=== PATIENT | male | born 1950 | race Caucasian/White ===

== ENCOUNTER 2016-10-11 10:58 | Inpatient (IN) ==
[2016-10-11] MEDS ORDERED: Acetaminophen 325 MG TABLET PO PRN (12:08)
[2016-10-11] MEDS ORDERED: Naloxone 0.4 MG/ML INJ IVP PRN (12:08)
[2016-10-11] MEDS ORDERED: Ondansetron ODT 4 MG TAB.RAPDIS SL PRN (12:08)
--- NOTE | 2016-10-11 12:44 | Internal Med History&Physical ---
<Kathy Ward - Last Filed: 10/11/16 12:38> Date of Encounter: 10/11/16 Time of Encounter: 12:38 Assessment and Plan (1) CVA (cerebral vascular accident) Current visit: Yes Status: Acute per hx 2012. No residual effects. MRI done at [place] that showed new, small, acute ischemic infarct to left temporal lobe. Neurologically intact, no deficits apparent. Cont home ASA, statin. Hgb 1c, TSH, LDL, echo and carotid dopplers pending. Neurology consulted Qualifiers: CVA mechanism: unspecified Qualified Code(s): I63.9 - Cerebral infarction, unspecified (2) CAD (coronary artery disease) Current visit: Yes Status: Acute per hx with CABG 2004. Asymptomatic, denies chest pain. EKG with RBBB and mobitz 1. Cont home ASA, statin. Echo pending cardiology consulted Qualifiers: Coronary Disease-Associated Artery/Lesion type: bypass graft [place] vs. transplanted heart: [place] heart Associated angina: without angina Qualified Code(s): I25.810 - Atherosclerosis of coronary artery bypass graft(s) without angina pectoris (3) HTN (hypertension) Current visit: Yes Status: Acute per hx. BP elevated in the ED. Will defer permissive HTN as patient is asymptomatic and unclear when infarct occurred. Resume home BP medications. Monitor BP and titrate PRN Qualifiers: Hypertension type: essential hypertension Qualified Code(s): I10 - Essential (primary) hypertension (4) Diabetes Current visit: Yes Status: Acute per hx. Control unknown. Blood sugar in 200s at [place]. Cont home insulin regimen. Hold metformin. Monitor blood sugars and titrate PRN Qualifiers: Diabetes mellitus type: type 2 Diabetes mellitus complication status: with hyperglycemia Diabetes mellitus halfway insulin use: with halfway use Qualified Code(s): E11.65 - Type 2 diabetes mellitus with hyperglycemia; Z79.4 - terminal carman (current) use of insulin (5) DVT prophylaxis Current visit: Yes Status: Acute heparin Internal Medicine - H&P: HPI Chief complaint: new stroke on MRI History of present illness: Mr. Finney is a 66 year old male with PMH CAD, previous CVA, diabetes and HTN who presented to [place] for scheduled MRI which found new CVA. he was transferred to [facility] on 10/11/2016 for further work-up and treatment. Information obtained from chart review and patient report. [facility], he's not sure why. Says he felt fine, says he was told to come in and have MRI done. He actually has no complains, no slurred speech, no facial droop, no numbness/ tingling or weakness. He denies CP, no SOB Past Med Surg Social Fam HX - Past Medical History Medical history: CVA Psychiatric history: anxiety - Past Surgical History Surgical History: coronary bypass (CABG) - Social History Smoking Status: Never smoker Smokeless Tobacco Status: No Alcohol use: none Drug use: none - Additional Family History Additional family history: reviewed and non-contributory Internal Medicine - H&P: Meds Allergies No Known Allergies Allergy (Verified 10/11/16 12:20) All Systems PM: A 10-system review of systems was performed and is negative for pertinent findings except as documented above in the HPI. - Constitutional Constitutional: no chills, no fever(s), no night sweats - EENT Eyes: no change in vision, no discharge, no pain, no photophobia Ears: no ear discharge, no ear pain, no tinnitus Nose, mouth and throat: no dysphagia, no nasal discharge, no neck pain, no sore throat - Cardiovascular Cardiovascular ROS IM: no chest pain, no diaphoresis, no dyspnea, no lightheadedness, no palpitations, no syncope - Respiratory Respiratory: no cough, no dyspnea, no wheezing, no excessive phlegm production - Gastrointestinal Gastrointestinal: no abdominal pain, no diarrhea, no hematemesis, no hematochezia, no melena, no nausea, no vomiting - Musculoskeletal Musculoskeletal ROS IM: no numbness, no tingling - Integumentary Integumentary IM: no rash, no unusual bruising - Neurological Neurological ROS: no confusion, no convulsions, no focal weakness, no numbness, no tingling, no tremor(s) - Hematologic/Lymphatic Hematologic/Lymphatic: no easy bruising - Constitutional Vitals: Temp Pulse Resp BP Pulse Ox 98.0 F 57 18 190/79 98 10/11/16 11:09 10/11/16 11:09 10/11/16 11:09 10/11/16 11:09 10/11/16 11:09 General appearance: Present: A&O X 3, no acute distress - Head Head exam: Present: atraumatic, normocephalic - Eye Eye exam: Present: PERRL, conjuntiva pink, sclera anicteric Pupils: Present: PERRL - Neck Neck exam general surgery: Present: supple, trachea midline. Absent: lymphadenopathy - Respiratory Respiratory exam: Present: CTAB. Absent: accessory muscle use, rales, rhonchi, wheezes - Cardiovascular Cardiovascular exam: Present: RRR, +S1, +S2. Absent: diastolic murmur, gallop, rubs, systolic murmur - GI/Abdominal GI/Abdominal exam: Present: normal bowel sounds, soft, no peritoneal signs. Absent: distended, tenderness Additional comments: obese - Extremities Exam Extremities exam: Present: warm, radial pulses palpable and symetrical. Absent : calf tenderness, cyanotic, pedal edema - Neurological Exam Neurological exam: Present: CN II-XII intact, oriented X3, no focal deficits. Absent: pronater drift, facial droop, speech deficit Additional comments: strenth 5/5 in all extremities, subtle weakness with right hand squeeze - Skin Skin exam: Present: dry, intact Internal Med - H&P Results - EKG Data -: EKG Interpreted by Myself - EKG Data Prior EKG available for review: no - Impressions RBBB with darrellitz 1 <Jonathan Luciano H - Last Filed: 10/11/16 13:48> Date of Encounter: 10/11/16 Internal Medicine - H&P: HPI History of present illness: Mr. Finney is a 66 year old male All Systems PM: A 10-system review of systems was performed and is negative for pertinent findings except as documented above in the HPI. - Constitutional Vitals: Temp Pulse Resp BP Pulse Ox 98.0 F 54 18 178/99 99 10/11/16 11:09 10/11/16 13:21 10/11/16 13:21 10/11/16 13:21 10/11/16 13:21 - Attending Attestation 1) CVA noticed on MRI History of CVA in 2013. Continue aspirin Order echocardiogram and cardiac ultrasound, neurology consult 2. Mobitz 1 AV block Telemetry, followed by cardiology 3. Diabetes type 2, continue insulin sliding scale 4. 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 I agree with the documented findings, disposition and treatment plan as described except to the extent set forth below.
--- NOTE | 2016-10-11 12:51 | Event Note ---
Date of Encounter: 10/11/16 Time of Encounter: 12:49 1) CVA noticed on MRI History of CVA in 2013. Continue aspirin Order echocardiogram and cardiac ultrasound, neurology consult 2. Mobitz 1 AV block Telemetry, followed by cardiology 3. Diabetes type 2, continue insulin sliding scale 4. Hypertension, permissive hypertension allowed, may use hydralazine if systolic blood pressure more than 180 Time spent on this admission 40 minutes H an P by JENAE Ward
[2016-10-11 12:56] LABS: Hemoglobin A1C 10.8 %
--- NOTE | 2016-10-11 13:28 | Emergency Department Note ---
Disposition Clinical Impression: CVA (cerebral vascular accident) Qualifiers: CVA mechanism: unspecified Qualified Code(s): I63.9 - Cerebral infarction, unspecified Disposition: Admitted As Inpatient Condition: Fair [facility]: [facility]Primary Care Provider[facility] - Forms: ED Satisfaction Letter General Adult HPI - General Chief complaint: ED Arrhythmia/Palpitations Stated complaint: general Time Seen by Provider: 10/11/16 11:08 Source: patient Nursing Notes Reviewed: Yes Vital Signs Reviewed: Yes - History of Present Illness HPI Narrative: Patient comes to the emergency department from the [facility] due to abnormal lab results. Per report patient had a MRI of his head for a "checkup" . On the MRI patient found to have an acute small infarct at the posterior left temporal lobe. Patient denies any neurological symptoms. Patient did have a CVA back in 2013 when he states he has some residual right-sided weakness. Patient denies chest pain denies shortness of breath. Patient denies dizziness associated. Pain Scale: 0 - Related Data Allergies Allergy/AdvReac Type Severity Reaction Status Date / Time No Known Allergies Allergy Verified 10/11/16 12:20 All systems ED: reviewed and negative except as stated. Past Medical History - Past Medical History Source: patient Medical history: Reports: CVA Surgical history: Reports: coronary bypass (CABG) Psychiatric history: Reports: anxiety - Social History Smoking Status: Never smoker Smokeless Tobacco Status: No Alcohol use: Reports: none Drug use: Reports: none Physical Exam - General Limitations: no limitations General appearance: alert, in no apparent distress - Head Head exam: atraumatic, normocephalic, normal inspection - Eye Eye exam: Present: normal appearance, PERRL, EOMI - ENT ENT exam: normal exam, normal oropharynx, mucous membranes moist - Neck Neck exam: Present: normal inspection, full ROM, trachea midline - Chest Chest inspection: Present: normal inspection, symmetric chest wall rise - Respiratory Respiratory exam: Present: normal lung sounds bilaterally - Cardiovascular Cardiovascular exam: Present: regular rate, normal rhythm, normal heart sounds - Abdominal Exam Abdominal exam: Present: soft, Non-Tender. Absent: tenderness, distention, guarding, rebound, rigidity - Extremities Exam Extremities exam: Present: normal inspection, full ROM. Absent: tenderness, pedal edema - Back Exam Back exam: Present: normal inspection, full ROM. Absent: tenderness - Neurological Exam Neurological exam: Present: alert, oriented X3 - Psychiatric Psychiatric exam: Present: normal affect, normal mood - Skin Skin exam: Present: warm, dry, intact, normal color Course Vital Signs Temperature 98.0 F 10/11/16 11:09 Pulse Rate 57 10/11/16 11:09 Respiratory Rate 18 10/11/16 11:09 Blood Pressure 190/79 10/11/16 11:09 O2 Sat by Pulse Oximetry 98 10/11/16 11:09 Temperature 98.0 F 10/11/16 11:09 Pulse Rate 54 10/11/16 13:21 Respiratory Rate 18 10/11/16 13:21 Blood Pressure 178/99 10/11/16 13:21 O2 Sat by Pulse Oximetry 99 10/11/16 13:21 Oxygen Delivery Oxygen Delivery Room Air Medical Decision Making - Lab Data Lab results reviewed: Yes I reviewed the patient's lab results. Lab results narrative: Lab work performed at the [facility] was unremarkable. Lab Results 10/11/16 10/11/16 Range/Units 12:39 12:39 Est Mean Plasma Glucose 263 mg/dl Hemoglobin A1c 10.8 H ( - 5.6) % TSH 1.369 (0.350-4.840) mcIU/mL - Radiology Data Radiology results reviewed: Yes I reviewed the patient's radiology results. [facility] - EKG Data EKG #1 EKG attestation: Yes I reviewed and interpreted this EKG. EKG results narrative: Second-degree heart block Mobitz 1. No previous history. Critical Care Time Total Critical Care Time: 30 Attestation: Critical care performed: Time is exclusive of separately billable procedures. Time includes: direct patient care, patient reassessment, coordination of patient care, interpretation of data (laboratory data, radiology data, and respiratory data), review of patient's medical records, medical consultation and documentation of patient care. Procedures included in critical care time: Procedures excluded from critical care time:
[2016-10-11] MEDS ORDERED: D5% in Water 1,000 ML IVC PRN (13:52)
[2016-10-11] MEDS ORDERED: Dextrose Gel 15 GM PO PRN ×2 (13:52)
[2016-10-11] MEDS ORDERED: *HR* Dextrose 50 % in Water (Syg) 50 ML SYRINGE IVP PRN (13:52)
[2016-10-11] MEDS: Lisinopril 20 MG TABLET PO SCH (14:30)
[2016-10-11] MEDS: Insulin LISPRO 300 UNITS/3 ML VIAL SQ SCH ×2 (17:41→21:44)
[2016-10-11] MEDS: *HR* Heparin 5,000 UNIT/ML VIAL SQ SCH ×2 (17:41→21:45)
[2016-10-11] MEDS ORDERED: Perflutren Lipid Microsphere 1.3 ML in 0.9 % Sodium Chloride 8.7 ML IVP ONE (19:58)
[2016-10-11] MEDS: Insulin DETEMIR 100 UNIT/ML X5UNITS SQ SCH (21:43)
[2016-10-12] MEDS: *HR* Heparin 5,000 UNIT/ML VIAL SQ SCH ×3 (06:17→21:02)
[2016-10-12 06:51] LABS: Basophils % 0.4 %; Eosinophils # 0.2 K/mcL (0.0-0.6); Eosinophils % 3.2 %; Hematocrit 42.8 % (37.5-50.1); Hemoglobin 14.8 g/dL (12.9-16.9); Immature Granulocytes % 0.5 % (0-4); Lymphocytes # 1.9 K/mcL (0.6-4.6); Lymphocytes % 24.3 %; Mean Corpuscular HGB Conc 34.6 g/dL (31.6-35.5); Mean Corpuscular Hemoglobin 30.7 pg (28.0-33.3); Mean Corpuscular Volume 88.8 fL (83.0-100.0); Monocytes # 0.8 K/mcL (0.0-1.3); Monocytes % 9.9 %; Neutrophils # 4.7 K/mcL (1.6-8.9); Platelet Count 182 K/mcL (140-400); Red Blood Count 4.82 M/mcL (4.19-5.50); Red Cell Distribution Width 12.9 % (11.5-14.5); Segmented Neutrophils % 61.7 %
[2016-10-12 07:12] LABS: BUN/Creatinine Ratio 15 (6-26); Blood Urea Nitrogen 19 mg/dL (8-26); Calcium 9.1 mg/dL (8.6-10.8); Carbon Dioxide 28 mEq/L (19-29); Chloride 105 mEq/L (98-109); Chol/HDL Ratio 4.7 (0-4.9); Cholesterol 149 mg/dL (< 200); Glucose 145 mg/dL (70-99); HDL Cholesterol 32 mg/dL (40-59); LDL Cholesterol,Calculated 81 mg/dL (0-99); Osmolality,Calculated 293 (280-300); Potassium 4.3 mEq/L (3.5-4.5); Sodium 139 mEq/L (136-145); Triglycerides 181 mg/dL (< 150); eGFR For African Americans > 60 (> 60); eGFR For Non-African Americans 59 (> 60)
--- NOTE | 2016-10-12 08:52 | ECHO - Doppler Report ---
Echo with Saline and Imaging Enhancement Agent Name: Marky Finney Date of Study: 10/11/2016 Date: 1950 Ht: 70.0 in Medical Record#: [id number] Age: 66 Wt: 235.0 lb Gender: Male BSA: 2.24 Order #: [id number] Location: [facility] Room #: 2A32 Reading Physician: Porsha Guzman DO Supervisor Photocomposition: Adalgisa Cohen Ordering Physician: Kathy Ward CNP Primary Physician: None Indications: Cerebrovascular Accident Impressions: Sinus rhythm, BBB and first degree AVB on rhythm strip. LVEF 55%. Normal left ventricular size and systolic function. There is evidence of mild diastolic dysfunction of the left ventricle. Normal right ventricular size and function in visualized views. No significant valvular dysfunction. No pulmonary hypertension. Suboptimal saline contrast study to detect PFO secondary to image quality. Left Ventricular Wall Motion: Rest Echo Findings All wall segments showed normal motion. Findings: Study Quality * Technically sub-optimal due to body habitus. ECG Findings * Normal sinus rhythm, BBB with first degree AVB. Left Ventricle * Normal LV chamber size, wall thickness and function. * Mild left ventricular diastolic dysfunction. * LVEF 55%. * Definity echo contrast was used. Aorta * Normally sized aortic root. Left Atrium * Mildly dilated left atrium. Mitral Valve * Normal mitral valve structure. * No mitral stenosis. * Mild mitral annular calcification * No mitral regurgitation. Aortic Valve * No aortic regurgitation. * Off-axis SAX view. Morphology not well visualized. * No aortic stenosis. Tricuspid Valve * Tricuspid valve not well visualized. * No tricuspid regurgitation. Pulmonic Valve * Pulmonic valve is not well visualized. * No pulmonic stenosis. * No pulmonic regurgitation. Pulmonary Artery * Pulmonary artery not well visualized. Right Atrium * Normal right atrial size. Interatrial Septum * Interatrial septum not well evaluated. Pericardium * There is no pericardial effusion present. Right Ventricle * Normal right ventricular structure and function. Not well visualized in subcostal view. Lat S Chu 10cm/s History Hypertension Diabetes Hypercholesteremia Years 25 Packs 1 History of CAD/PTCA Myocardial Infarction Coronary Artery Bypass Graft Contrast: Agitated saline 20 ml. Definity 1.3 ml in 8.7 ml of saline 4 ml. Measurements: BP: 180/ 102 2D Normal Values RVIDd: 2.82 cm <2.7 cm IVSd: .66 cm 0.6 - 1.0 cm LVIDd: 3.63 cm 3.7 - 5.6 cm LVPWd: .91 cm 0.6 - 1.1 cm LVIDs: 2.43 cm 1.5 - 3.6 cm AO: 2.10 cm < 4.0 cm LA: 3.30 cm 2.0 - 4.0cm %FS: 33.10 cm >25 % LA volume: 57 Mitral Valve Peak E:1.04 m/sec Peak A:1.15 m/sec E/A Ratio:0.9 Peak E' Lat Chu:7.18 cm/s Peak E' Med Chu:13.3 cm/s E/E' Lat Ratio:14.5 E/E' Med Ratio:7.8 Tricuspid Valve TV Regurg Peak Grad: 3.00mmHg TV Regurg Peak Chu: .91m/sec Updated by Porsha Guzman on 10/12/2016 8:45:47 AM electronically signed on 10/12/2016 8:46:41 AM with status of Final Wall Motion [place]: 1=Normal, 2=Hypokinesis, 3=Akinesis, 4=Dyskinesis, 5=Aneurysmal, 6=Hyperkinetic, X=Not Visualized (Blank)=Missing
[2016-10-12] MEDS ORDERED: Aspirin Enteric Coated 325 MG Tablet PO SCH (09:00)
[2016-10-12] MEDS: Aspirin Enteric Coated 81 MG Tablet PO SCH (09:21)
[2016-10-12] MEDS: Lisinopril 20 MG TABLET PO SCH (09:22)
[2016-10-12] MEDS: Insulin LISPRO 300 UNITS/3 ML VIAL SQ SCH ×4 (09:22→21:00)
--- NOTE | 2016-10-12 14:09 | Internal Med Progress Note ---
Date of Encounter: 10/12/16 Time of Encounter: 11:55 - Assessment and plan (1) CVA (cerebral vascular accident) Current Visit: Yes Status: Acute Assessment and plan: Pt transferred from [facility] for further evaluation of MRI brain showing new, small , acute ischemic infarct to left temporal lobe will continue ASA, Statin awaiting neurology consultation f/u PT/OT eval f/u 2D echo Qualifiers: CVA mechanism: unspecified Qualified Code(s): I63.9 - Cerebral infarction, unspecified (2) CAD (coronary artery disease) Current Visit: Yes Status: Chronic Assessment and plan: no signs of angina present at this time continue home medications Qualifiers: Coronary Disease-Associated Artery/Lesion type: bypass graft [place] vs. transplanted heart: [place] heart Associated angina: without angina Qualified Code(s): I25.810 - Atherosclerosis of coronary artery bypass graft(s) without angina pectoris (3) HTN (hypertension) Current Visit: Yes Status: Acute Assessment and plan: BP within acceptable range continue home medications Qualifiers: Hypertension type: essential hypertension Qualified Code(s): I10 - Essential (primary) hypertension (4) Diabetes Current Visit: Yes Status: Acute Assessment and plan: continue sliding scale insulin algorithm monitor FS and BG ADA diet Qualifiers: Diabetes mellitus type: type 2 Diabetes mellitus complication status: with hyperglycemia 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 Resting comfortably in bed and denies any discomfort at this time. - Constitutional Vitals: Temp Pulse Resp BP Pulse Ox 98.3 F 65 15 123/63 95 10/12/16 11:30 10/12/16 11:30 10/12/16 11:30 10/12/16 11:30 10/12/16 11:30 General appearance: Present: cooperative, A&O X 3, no acute distress, obese, answers questions appropriately - Head Head exam: Present: atraumatic, normocephalic - Eye Eye exam: Present: normal appearance, conjuntiva pink, sclera anicteric - Respiratory Respiratory exam: Present: CTAB. Absent: accessory muscle use, rales, rhonchi, wheezes - Cardiovascular Cardiovascular exam: Present: RRR, +S1, +S2. Absent: diastolic murmur, gallop, rubs, systolic murmur - GI/Abdominal GI/Abdominal exam: Present: normal bowel sounds, soft, no peritoneal signs. Absent: distended, tenderness - Extremities Exam Extremities exam: Present: warm, radial pulses palpable and symetrical. Absent : calf tenderness, cyanotic, pedal edema - Neurological Exam Neurological exam: Present: alert, CN II-XII intact, oriented X3, strengths equal and symetr throughout. Absent: pronater drift, facial droop, speech deficit - Psychiatric Psychiatric exam: Present: normal affect, normal mood Internal Medicine: Result - Labs CBC & Chem 7: 10/12/16 06:22 10/12/16 06:22 Labs: Short CBC 10/12/16 Range/Units 06:22 WBC 7.6 (4.3-11.1) K/mcL Hgb 14.8 (12.9-16.9) g/dL Hct 42.8 (37.5-50.1) % Plt Count 182 (140-400) K/mcL Neutrophils # 4.7 (1.6-8.9) K/mcL BMP 10/12/16 06:22 Sodium 139 Potassium 4.3 Chloride 105 Carbon Dioxide 28 BUN 19 Creatinine 1.23 Glucose 145 H Calcium 9.1 Consult Discharge Plan - Plan [facility]errals: [facility] [Primary Care Provider] -
--- NOTE | 2016-10-12 15:15 | Neurology - Consult Note ---
Date of Encounter: 10/12/16 Time of Encounter: 15:10 Assessment and Plan (1) CVA (cerebral vascular accident) Current Visit: Yes Status: Acute The patient has not fact experienced a silent infarct involving the left temporal lobe region. This gentleman experienced no new symptoms from a neurologic perspective. Currently his neurologic examination is normal barring the diplopia which he states is been present for at least a year now. Upon admission his systolic blood pressure was 190 so his blood pressure is not well controlled, and his glucose was elevated at 145. Since being admitted his had an echocardiogram which was unrevealing. I do recommend a carotid duplex Doppler study. I also recommend discontinuing the aspirin replacing it with Plavix 75 mg daily indefinitely. Otherwise certainly aggressive management of his risk factors is paramount again his blood pressure was 190 systolic upon admission, his hemoglobin A1c is 10. I did not anticipate that he needs any additional therapy from my perspective. I will reevaluate him at your request. The documentation in the history of HPI and plan were at least partially created by [employer] voice recognition technology by Dr. Hollins. Errors in grammar, wording or other phrases may exist. If errors are found after the documentation signed, they will be addressed individually in the addendum section of this document when appropriate. Qualifiers: CVA mechanism: unspecified Qualified Code(s): I63.9 - Cerebral infarction, unspecified History of Present Illness HPI: Mr. Finney is a 66 year old male who was seen for neurologic evaluation secondary to acute left temporal occipital cerebral infarct. The history here is very unclear. This patient apparently went to the local [place] hospital to "obtain an MRI of my head". He is not exactly sure why he was sent for this MRI. He mentions about 3 weeks or so ago he had a "TIA" and was hospitalized at the [facility]. His symptoms at that time work and some confusion which resolved spontaneously over an hour or so. He also reports having had a cerebral infarct back in 2013, but does not recall specifics about how it affected him at that time. He has had diplopia for about a year now. 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 However as it pertains to this acute hospital admission he denies any new onset of any neurologic symptoms. Denies headache denies worsening visual changes denies numbness tingling or weakness of the face on the leg. However the MRI that was obtained with the [facility] revealed acute infarct in the left temporal lobe. Unfortunately the study is not available for my review. Patient at this time is reclining in bed relaxed. Patient upon arrival had a blood pressure of 190/79. He does have stroke risk factors which include hyperlipidemia, hypertension, diabetes mellitus. He states that he has been taking aspirin daily for quite some time now. At least since 2005 that he can recall. Upon arrival his electrolyte panel is normal BUN/creatinine are normal. Glucose is elevated at 145. Upon admission. Past Med Surg Social Fam HX - Past Medical History Medical history: CVA, myocardial infarction Psychiatric history: anxiety - Past Surgical History Surgical History: coronary bypass (CABG) - Social History Smoking Status: Never smoker Smokeless Tobacco Status: No Alcohol use: none Drug use: none - Family History Mother Living Status: Cause of : mesothelioma Father Living Status: Cause of : Old age Medications and Allergies Aspirin Enteric Coated [Aspirin EC] 81 mg PO DAILY 10/11/16 [History] Insulin ASPART [Novolog Flexpen] 15 - 20 unit SQ TIDWM MDD SLIDING SCALE [History] Insulin Glargine,Hum.rec.anlog [Lantus Solostar] 20 unit SQ HS 10/11/16 [History ] Lisinopril [Zestril] 20 mg PO DAILY 10/11/16 [History] Naproxen [Naprosyn] 500 mg PO BID 10/11/16 [History] [place]-3/Dha/Epa/Fish Oil [Fish Oil 1,000 mg Softgel] 1,000 mg PO BID 10/11/16 [ History] Oxybutynin [Ditropan] 5 mg PO BID 10/11/16 [History] Rosuvastatin [Crestor] 40 mg PO HS 10/11/16 [History] Vitamin B Complex 1 cap PO DAILY 10/11/16 [History] metFORMIN [Glucophage] 1,000 mg PO BIDWM 10/11/16 [History] Allergies No Known Allergies Allergy (Verified 10/11/16 12:20) All Systems: A 10-system review of systems was performed and is negative for pertinent findings except as documented above in the HPI. Review of Systems: 10 point review of systems is consistent with a history of present illness and otherwise negative. Physical Examination - Vital Signs Vital Signs: Initial Vital Signs Temp Pulse Resp BP Pulse Ox 98.0 F 57 18 190/79 98 10/11/16 11:09 10/11/16 11:09 10/11/16 11:09 10/11/16 11:09 10/11/16 11:09 - Exam Exam: Neurologic examinations performed and find the following. For cerebral functions he is alert and oriented to person place and time. He follows commands and answers questions appropriately. There is no agnosia, aphasia, or apraxia. A full Mini-Mental state assessment is not performed. Cranial nerves-pupils are equal and reactive to light and accommodation, extraocular motility is intact. He does have vertical diplopia which is worse with downward and leftward gaze. I suspect that the left trochlear nerve is at fault. There is no ptosis present. Sensory to face intact, mastication is intact, mastication is intact. There is no facial asymmetry identified. Speech is not dysarthric. Hearing is intact symmetrically. Soft palate elevates bilaterally upon phonation. Tongue protrudes midline. Cerebellar exam finds no dysdiadochokinesis or dysmetria. He performs finger to nose, heel to chen without ataxia. Gait is not ataxic. Motor exam-he has normal strength bulk and tone of the upper and lower extremities bilaterally. No involuntary movements identified. There is no atrophy present. Sensory exam finds decreased sensation to pinprick in a distal to proximal gradient. Vibratory and proprioception are intact. Deep tendon reflexes are diminished throughout. No Lorenzo trauma or Babinski signs are present. Results - Laboratory Findings CBC and BMP: 10/12/16 06:22 10/12/16 06:22 Abnormal lab findings: Abnormal lab results Est GFR (Non-Af Amer) 59 (> 60) L 10/12/16 06:22 Glucose 145 mg/dL (70-99) H 10/12/16 06:22 POC Glucose 226 (58-89) H 10/12/16 11:32 Hemoglobin A1c 10.8 % (-5.6) H 10/11/16 12:39 Triglycerides 181 mg/dL (< 150) H 10/12/16 06:22 VLDL Cholesterol, Calc 36 mg/dL (< 31) H 10/12/16 06:22 HDL Cholesterol 32 mg/dL (40-59) L 10/12/16 06:22 Consult Discharge Plan - Plan [facility]errals: [facility] [Primary Care Provider] -
--- NOTE | 2016-10-12 15:49 | Event Note ---
Date of Encounter: 10/12/16 Time of Encounter: 15:49 Patient was reported to have tele rhythm changes from Mobitz type I to type II AV block with episodes of sinus bradycardia fluctuating from 40s-60s. Pt remains asymptomatic and in no distress. No reported SOB or chest pain. Cardiology (Dr. Pedroza) consulted and will evaluate the patient shortly. Patient will be transferred to for closer monitoring. Repeat EKG consistent with Mobitz type II AV block with 51bpm
--- NOTE | 2016-10-12 16:14 | Cardiology Consult Note ---
Date of Encounter: 10/12/16 Time of Encounter: 16:00 Assessment and Plan (1) Heart block Current Visit: Yes Status: Acute Telemetry review shows intermittent Mobitz type I and long first degree AV block. . 4.7 second pause seen at 3:10 am. minimum HR 33 bpm at 7:41 pm last night. Currently Mobitz type I AV block HR 40-60 bpm. He is asymptomatic. No history of recent AV tang herlinda. Electrolytes are normal. TSH normal. Avoid AV tang blockers. Possible ppm today, Will review strips and EKG with electrophysiology. (2) CAD (coronary artery disease) Current Visit: Yes Status: Chronic h/o CAD s/p CABG x3 vessel in 2004. Continue asa and statin. No BB d/t 2nd degree heart block. Qualifiers: Coronary Disease-Associated Artery/Lesion type: bypass graft [place] vs. transplanted heart: [place] heart Associated angina: without angina Qualified Code(s): I25.810 - Atherosclerosis of coronary artery bypass graft(s) without angina pectoris Discussion w patient/family: The assessment and plan as outlined above was discussed with the patient and/or family members who expressed understanding and agreement. All questions were answered. Thank you for involving us in the care of your patient. Please call with any questions. History of Present Illness Consult date: 10/12/16 Requesting physician: Kaylan Almaguer Consult reason: heart block Chief complaint: "I had a stroke." History of present illness: Mr. Finney is a 66 year old male who presented from the [place] after he was found to have an acute stroke on a MRI. Patient denies symptoms. He states he was at the [place] for routine exam when he was found to have an abnormality on a MRI of the brain and abnormal EKG. Initial EKG showed a possible mobitz type II block. MRI shows small acute left temporal lobe infarct. During his stay here he was noted to have pauses up to 4.7 seconds and intermittent 2nd degree heart block. He denies chest pain or SOB. He denies palpitations, dizziness, or syncope. He has a history of CAD s/p CABG x3 vessel in 2004, CVA, DM, HTN, HLD, and MICAELA. Past Med Surg Social Fam HX - Past Medical History Medical history: coronary artery disease, CVA, hyperlipidemia, hypertension, myocardial infarction Psychiatric history: anxiety - Past Surgical History Surgical History: coronary bypass (CABG) - Social History Smoking Status: Never smoker Smokeless Tobacco Status: No Alcohol use: none Drug use: none - Family History Mother Living Status: Cause of : mesothelioma Father Living Status: Cause of : Old age Medications and Allergies Aspirin Enteric Coated [Aspirin EC] 81 mg PO DAILY 10/11/16 [History] Insulin ASPART [Novolog Flexpen] 15 - 20 unit SQ TIDWM MDD SLIDING SCALE [History] Insulin Glargine,Hum.rec.anlog [Lantus Solostar] 20 unit SQ HS 10/11/16 [History ] Lisinopril [Zestril] 20 mg PO DAILY 10/11/16 [History] Naproxen [Naprosyn] 500 mg PO BID 10/11/16 [History] [place]-3/Dha/Epa/Fish Oil [Fish Oil 1,000 mg Softgel] 1,000 mg PO BID 10/11/16 [ History] Oxybutynin [Ditropan] 5 mg PO BID 10/11/16 [History] Rosuvastatin [Crestor] 40 mg PO HS 10/11/16 [History] Vitamin B Complex 1 cap PO DAILY 10/11/16 [History] metFORMIN [Glucophage] 1,000 mg PO BIDWM 10/11/16 [History] Allergies No Known Allergies Allergy (Verified 10/11/16 12:20) All Systems Review: A 10-system review of systems was performed and is negative for pertinent findings except as documented above in the HPI. Physical Examination Vital Signs, Last 4 Hours Temp Pulse Resp BP Pulse Ox 10/12/16 15:28 98.3 F 65 13 155/89 95 General: Conversant, No Apparent Distress HEENT: Atraumatic, Normocephaly, Mucus Membranes Moist Neck: No JVD, Normal carotid pulses Cardiac: Reg Rate and Rhythm, Normal S1 and S2, No Murmur Lungs: Normal Breath Sounds, No Wheeze, Rales, Rhonchi Neuro: Alert and responsive, No focal deficits noted Abdomen: Soft, Non-Tender Skin: No rashes noted on visualized skin Musculoskeletal: No Chest Wall Tenderness Extremities: No Clubbing, No Cyanosis, No Edema, Normal Pulses Results 10/12/16 06:22 10/12/16 06:22 Lab Results 10/12/16 10/12/16 06:22 06:22 WBC 7.6 Hgb 14.8 Hct 42.8 Plt Count 182 Sodium 139 Potassium 4.3 Chloride 105 Carbon Dioxide 28 BUN 19 Creatinine 1.23 Glucose 145 H Calcium 9.1 - Imaging and Cardiology Echo: report reviewed - EKG Interpretation EKG results cardiology: personally reviewed Consult Discharge Plan - Plan [facility]errals: [facility] [Primary Care Provider] -
[2016-10-12] MEDS ORDERED: 0.9 % Sodium Chloride 500 ML ONE (17:21)
[2016-10-12] MEDS ORDERED: *HR* FentaNYL (PF) 100 MCG/2 ML VIAL ONE (17:22)
[2016-10-12] MEDS ORDERED: 0.9 % Sodium Chloride 1,000 ML ONE (17:22)
[2016-10-12] MEDS ORDERED: D5% in Water (Mini-Bag+) 100 ML IVPB ONE (17:22)
[2016-10-12] MEDS ORDERED: Water for inj. (sterile) 10 ML IV ONE (17:22)
[2016-10-12] MEDS ORDERED: *HR* Midazolam HCl 2 MG/2 ML VIAL ONE (17:23)
[2016-10-12] MEDS: Insulin DETEMIR 100 UNIT/ML X5UNITS SQ SCH (21:45)
[2016-10-12] MEDS: ceFAZolin 2,000 MG in D5% in Water 100 ML IVPB SCH (23:48)
[2016-10-13 04:40] LABS: Basophils % 0.5 %; Eosinophils # 0.3 K/mcL (0.0-0.6); Eosinophils % 2.9 %; Hematocrit 45.1 % (37.5-50.1); Hemoglobin 15.4 g/dL (12.9-16.9); Immature Granulocytes % 0.3 % (0-4); Lymphocytes # 2.3 K/mcL (0.6-4.6); Lymphocytes % 25.9 %; Mean Corpuscular HGB Conc 34.1 g/dL (31.6-35.5); Mean Corpuscular Hemoglobin 29.9 pg (28.0-33.3); Mean Corpuscular Volume 87.6 fL (83.0-100.0); Mean Platelet Volume 9.8 fL (9.4-12.4); Monocytes # 0.8 K/mcL (0.0-1.3); Monocytes % 9.5 %; Neutrophils # 5.3 K/mcL (1.6-8.9); Platelet Count 190 K/mcL (140-400); Red Blood Count 5.15 M/mcL (4.19-5.50); Red Cell Distribution Width 12.7 % (11.5-14.5); Segmented Neutrophils % 60.9 %
[2016-10-13 05:33] LABS: BUN/Creatinine Ratio 13 (6-26); Blood Urea Nitrogen 17 mg/dL (8-26); Calcium 9.2 mg/dL (8.6-10.8); Carbon Dioxide 25 mEq/L (19-29); Chloride 104 mEq/L (98-109); Glucose 218 mg/dL (70-99); Magnesium 1.7 mg/dL (1.6-2.6); Osmolality,Calculated 294 (280-300); Phosphorous 2.3 mg/dL (2.3-4.7); Potassium 4.1 mEq/L (3.5-4.5); Sodium 138 mEq/L (136-145); eGFR For African Americans > 60 (> 60); eGFR For Non-African Americans 56 (> 60)
[2016-10-13] MEDS: *HR* Heparin 5,000 UNIT/ML VIAL SQ SCH ×3 (05:36→23:16)
[2016-10-13] MEDS: Lisinopril 20 MG TABLET PO SCH (08:19)
[2016-10-13] MEDS: Aspirin Enteric Coated 81 MG Tablet PO SCH (08:19)
[2016-10-13] MEDS: ceFAZolin 2,000 MG in D5% in Water 100 ML IVPB SCH (08:19)
[2016-10-13] MEDS: Insulin LISPRO 300 UNITS/3 ML VIAL SQ SCH ×7 (08:30→20:26)
--- NOTE | 2016-10-13 08:37 | Internal Med Progress Note ---
Date of Encounter: 10/13/16 Time of Encounter: 08:35 - Assessment and plan (1) Heart block Current Visit: Yes Status: Acute Assessment and plan: Cardiology input appreciated Mobitz I 2nd AV block with underlying RBBB s/p permanent pacemaker placement, currently in NSR will await further cardiac input and initiate discharge planning continue tele monitoring Will start Metoprolol 12.5mg PO q12h (2) CVA (cerebral vascular accident) Current Visit: Yes Status: Acute Assessment and plan: Pt transferred from [facility] for further evaluation of MRI brain showing new, small , acute ischemic infarct to left temporal lobe Neurology consultation appreciated Will discontinue aspirin and start Plavix for stroke prevention f/u carotid dopplers 2D echo noted pt clinically asymptomatic right now and ambulating well around the room without any difficulties Qualifiers: CVA mechanism: unspecified Qualified Code(s): I63.9 - Cerebral infarction, unspecified (3) CAD (coronary artery disease) Current Visit: Yes Status: Chronic Assessment and plan: no signs of angina present at this time continue home medications will discuss with cardiology about starting Plavix and discontinuing Aspirin Qualifiers: Coronary Disease-Associated Artery/Lesion type: bypass graft [place] vs. transplanted heart: [place] heart Associated angina: without angina Qualified Code(s): I25.810 - Atherosclerosis of coronary artery bypass graft(s) without angina pectoris (4) HTN (hypertension) Current Visit: Yes Status: Acute Assessment and plan: Noted to be hypertensive this morning will closely monitor BP after patient receives his morning dose of Lisinopril added Metoprolol 12.5mg PO q12h will continue to monitor Hydralazine 10mg IV q6h PRN SBP>150 Qualifiers: Hypertension type: essential hypertension Qualified Code(s): I10 - Essential (primary) hypertension (5) Diabetes Current Visit: Yes Status: Acute Assessment and plan: continue sliding scale insulin algorithm monitor FS and BG ADA diet Qualifiers: Diabetes mellitus type: type 2 Diabetes mellitus complication status: with hyperglycemia Diabetes mellitus senior care insulin use: with senior care use Qualified Code(s): E11.65 - Type 2 diabetes mellitus with hyperglycemia; Z79.4 - 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 Patient sitting comfortably in bed and eating breakfast. He is s/p permanent pacemaker placement and currently noted to be in normal sinus rhythm. Denies any discomfort at this time. Mild tenderness to palpation noted at the site of pacemaker. No overnight issues reported. - Constitutional Vitals: Temp Pulse Resp BP Pulse Ox 97.7 F 75 20 154/91 96 10/13/16 08:09 10/13/16 08:09 10/13/16 08:09 10/13/16 08:09 10/13/16 08:09 General appearance: Present: cooperative, A&O X 3, no acute distress, obese, answers questions appropriately - Head Head exam: Present: atraumatic, normocephalic - Eye Eye exam: Present: normal appearance, conjuntiva pink, sclera anicteric - Respiratory Respiratory exam: Present: CTAB. Absent: accessory muscle use, rales, rhonchi, wheezes - Cardiovascular Cardiovascular exam: Present: RRR, +S1, +S2. Absent: diastolic murmur, gallop, rubs, systolic murmur Additional comments: Left chest wall pacemaker in place - GI/Abdominal GI/Abdominal exam: Present: normal bowel sounds, soft, no peritoneal signs. Absent: distended, tenderness - Extremities Exam Extremities exam: Present: warm, radial pulses palpable and symetrical. Absent : calf tenderness, cyanotic, pedal edema - Neurological Exam Neurological exam: Present: alert, oriented X3 - Psychiatric Psychiatric exam: Present: normal affect, normal mood Internal Medicine: Result - Labs CBC & Chem 7: 10/13/16 03:53 10/13/16 03:53 Labs: Short CBC 10/13/16 Range/Units 03:53 WBC 8.7 (4.3-11.1) K/mcL Hgb 15.4 (12.9-16.9) g/dL Hct 45.1 (37.5-50.1) % Plt Count 190 (140-400) K/mcL Neutrophils # 5.3 (1.6-8.9) K/mcL BMP 10/13/16 03:53 Sodium 138 Potassium 4.1 Chloride 104 Carbon Dioxide 25 BUN 17 Creatinine 1.27 H Glucose 218 H Calcium 9.2 Cardiac Enzymes 10/12/16 10/12/16 Range/Units 15:54 21:36 Troponin I 0.00 0.06 H* (0-0.03) ng/mL - Impressions Impressions Chest X-Ray 10/12/16 18:43 IMPRESSION: 1. Dual lead left-sided pacer appears adequately positioned with no evidence of pneumothorax. 2. Cardiomegaly and low lung volumes. D/ / 10/12/2016 20:24:59 Sj Rand MD / marianna Interpreting Provider: Sj Rand MD Chest X-Ray 10/13/16 06:00 IMPRESSION: No acute process. Stable cardiomegaly Transvenous pacer unchanged in position D/ / Dakota Harrison MD / Dakota Harrison MD Interpreting Provider: Dakota Harrison MD Consult Discharge Plan - Plan [facility]errals: [facility] [Primary Care Provider] -
--- NOTE | 2016-10-13 09:28 | Cardiology Progress Note ---
Date of Encounter: 10/13/16 Time of Encounter: 09:26 Assessment and Plan (1) Heart block Current Visit: Yes Status: Acute Pt was found to have Mobitz type 1 second degree heart block with longest pause noted ot be 4.7 seconds. Electrolytes are normal. TSH normal. Reviewed strips and EKG with electrophysiology, recommended PPM insertion. S/P PPM insertion yesterday. CXR okay, device check okay. Left chest device site healing well. Steri strips intact. No bleeding, hematoma or ecchymosis noted. Will coordinate follow-up in 7-10 days for wound check, 4-6 weeks for device check and in [address] Fermin Cross. Restrictions discussed. Cardiology signing off. Reconsult PRN. (2) Pacemaker Current Visit: Yes Status: Acute As above. Device check and CXR okay. Follow-up as above. (3) CVA (cerebral vascular accident) Current Visit: Yes Status: Acute Okay with primary team changing ASA to Plavix in setting of acute CVA. Will monitor device checks as outpt to see if any A-Fib is noted to warrant full anticoagulation. So far, no arrhythmias. Qualifiers: CVA mechanism: unspecified Qualified Code(s): I63.9 - Cerebral infarction, unspecified (4) CAD (coronary artery disease) Current Visit: Yes Status: Chronic h/o CAD s/p CABG x3 vessel in 2004. Continue Plavix, statin, BB. ASA was switched to Plavix by primary team given CVA. Qualifiers: Coronary Disease-Associated Artery/Lesion type: bypass graft [place] vs. transplanted heart: [place] heart Associated angina: without angina Qualified Code(s): I25.810 - Atherosclerosis of coronary artery bypass graft(s) without angina pectoris (5) Elevated troponin Current Visit: Yes Status: Acute Initial troponin negative, then 0.06 last night after PPM insertion. Pt denies chest pain. EF preserved on echo. No further cardiac testing warranted. Discussion w patient/family: The assessment and plan as outlined above was discussed with the patient and/or family members who expressed understanding and agreement. All questions were answered. Thank you for involving us in the care of your patient. Please call with any questions. I will discuss all the above with Dr. Pedroza and make changes as necessary. Subjective Principal diagnosis: Mobitz type 1 second degree block Interval history: Pt is s/p PPM yesterday for Mobitz type 1 2nd degree block. Denies any acute complaints this AM. Device check okay, CXR okay. Objective Vital Signs, Last 4 Hours Temp Pulse Resp BP Pulse Ox 10/13/16 08:27 154/91 96 10/13/16 08:09 97.7 F 75 20 154/91 96 10/13/16 05:35 97.7 F 71 18 154/93 94 Vital Signs Temp Pulse Resp BP Pulse Ox 10/13/16 08:27 154/91 96 10/13/16 08:09 97.7 F 75 20 154/91 96 10/13/16 05:35 97.7 F 71 18 154/93 94 10/13/16 04:48 73 10/13/16 00:01 98.0 F 74 16 148/74 95 10/12/16 22:30 68 149/92 10/12/16 21:30 90 129/85 10/12/16 21:10 97.7 F 65 16 146/103 96 10/12/16 20:45 65 161/81 10/12/16 20:30 59 151/75 10/12/16 20:15 80 168/100 10/12/16 20:00 70 138/69 10/12/16 19:45 71 155/130 10/12/16 19:20 70 10/12/16 19:15 68 168/95 10/12/16 16:27 83 18 159/82 96 10/12/16 15:28 98.3 F 65 13 155/89 95 10/12/16 11:30 98.3 F 65 15 123/63 95 Intake and Output 10/12/16 10/13/16 10/13/16 23:59 07:59 15:59 Intake Total 480 / 480 400 / 400 360 / 360 Balance 480 / 480 400 / 400 360 / 360 Intake: IV Fluids 100 / 100 Ancef 2,000 MG In 100 / 100 Dextrose 5% 100 ML @ 200 mls/hr IVPB Q8HR REID Rx#: [id number] Oral 480 / 480 300 / 300 360 / 360 Other: Meal Lunch Breakfast Percent of Meal Consumed 100% 100% # Voids 0 # Bowel Movements 0 Weight 107.2 kg Blood Glucose* 221 169 Patient Weight 10/13/16 23:59 Weight 107.2 kg General: Conversant, No Apparent Distress HEENT: Atraumatic, Normocephaly, Mucus Membranes Moist Neck: No JVD, Normal carotid pulses Cardiac: Reg Rate and Rhythm, Normal S1 and S2, No Murmur Lungs: Normal Breath Sounds, No Wheeze, Rales, Rhonchi Neuro: Alert and responsive, No focal deficits noted Abdomen: Soft, Non-Tender Skin: No rashes noted on visualized skin Musculoskeletal: No Chest Wall Tenderness Extremities: No Clubbing, No Cyanosis, No Edema, Normal Pulses Results 10/13/16 03:53 10/13/16 03:53 Lab Results 10/12/16 10/12/16 10/13/16 15:54 21:36 03:53 WBC 8.7 Hgb 15.4 Hct 45.1 Plt Count 190 Sodium Potassium Chloride Carbon Dioxide BUN Creatinine Glucose Calcium Magnesium Troponin I 0.00 0.06 H* 10/13/16 03:53 WBC Hgb Hct Plt Count Sodium 138 Potassium 4.1 Chloride 104 Carbon Dioxide 25 BUN 17 Creatinine 1.27 H Glucose 218 H Calcium 9.2 Magnesium 1.7 Troponin I Short CBC 10/13/16 Range/Units 03:53 WBC 8.7 (4.3-11.1) K/mcL Hgb 15.4 (12.9-16.9) g/dL Hct 45.1 (37.5-50.1) % Plt Count 190 (140-400) K/mcL Neutrophils # 5.3 (1.6-8.9) K/mcL BMP 10/13/16 Range/Units 03:53 Sodium 138 (136-145) mEq/L Potassium 4.1 (3.5-4.5) mEq/L Chloride 104 (98-109) mEq/L Carbon Dioxide 25 (19-29) mEq/L BUN 17 (8-26) mg/dL Creatinine 1.27 H (0.72-1.25) mg/dL Glucose 218 H (70-99) mg/dL Calcium 9.2 (8.6-10.8) mg/dL Cardiac Enzymes 10/12/16 10/12/16 Range/Units 21:36 15:54 Troponin I 0.06 H* 0.00 (0-0.03) ng/mL Impressions Chest X-Ray 10/12/16 18:43 IMPRESSION: 1. Dual lead left-sided pacer appears adequately positioned with no evidence of pneumothorax. 2. Cardiomegaly and low lung volumes. D/ / 10/12/2016 20:24:59 Sj Rand MD / marianna Interpreting Provider: jS Rand MD Chest X-Ray 10/13/16 06:00 IMPRESSION: No acute process. Stable cardiomegaly Transvenous pacer unchanged in position D/ / Dakota Harrison MD / Dakota Harrison MD Interpreting Provider: Dakota Harrison MD Active Medications Acetaminophen (Tylenol) 650 mg PO Q6HR PRN PRN Reason: Mild Pain (1-3) Stop: 04/12/17 12:09 Clopidogrel Bisulfate (Plavix) 75 mg PO DAILY [facility] Stop: 04/14/17 09:01 Last Admin: 10/13/16 09:00 Dose: 75 mg Dextrose/Water (Dextrose 50% (Syg)) 25 ml IVP AD PRN PRN Reason: Hypoglycemia Stop: 04/12/17 13:53 Glucagon (Glucagen) 1 mg IM ONCE PRN PRN Reason: Hypoglycemia Stop: 04/12/17 13:53 Glucose (Gluctose) 15 gm PO ONCE PRN PRN Reason: Hypoglycemia Stop: 04/12/17 13:53 Glucose (Gluctose) 30 gm PO ONCE PRN PRN Reason: Hypoglycemia Stop: 04/12/17 13:53 Heparin Sodium (Porcine) (Heparin) 5,000 unit SQ Q8HCO [facility]ID Stop: 04/12/17 14:01 Last Admin: 10/13/16 05:36 Dose: 5,000 unit Hydralazine HCl (Hydralazine) 10 mg IVP Q6HR PRN PRN Reason: SBP>150 Stop: 04/14/17 08:44 Dextrose (Dextrose 5%) 1,000 mls @ 100 mls/hr IVC .Q10H PRN PRN Reason: HYPOGLYCEMIA Stop: 04/12/17 13:53 Insulin Detemir (Levemir) 20 unit SQ HS [facility] Stop: 04/12/17 21:01 Last Admin: 10/12/16 21:45 Dose: 20 unit Insulin Human Lispro (Humalog) 0 units SQ TIDAC [facility] PRN Reason: Protocol Stop: 04/12/17 16:31 Last Admin: 10/13/16 08:37 Dose: 2 units Insulin Human Lispro (Humalog) 0 units SQ HS [facility] PRN Reason: Protocol Stop: 04/12/17 21:01 Last Admin: 10/12/16 21:00 Dose: Not Given Lisinopril (Zestril) 20 mg PO DAILY [facility] PRN Reason: Protocol Stop: 04/12/17 13:56 Last Admin: 10/13/16 08:19 Dose: 20 mg Metoprolol Tartrate (Lopressor) 12.5 mg PO BID [facility] Stop: 04/14/17 09:01 Last Admin: 10/13/16 09:01 Dose: 12.5 mg Naloxone HCl (Narcan) 0.4 mg IVP Q2MIN PRN PRN Reason: Opioid Reversal Stop: 04/12/17 12:09 Ondansetron HCl (Zofran Odt) 4 mg SL Q8HR PRN PRN Reason: Nausea And Vomiting Stop: 04/12/17 12:09 Oxybutynin Chloride (Ditropan) 5 mg PO BID [facility] PRN Reason: Protocol Stop: 04/12/17 21:01 Last Admin: 10/13/16 08:19 Dose: 5 mg Rosuvastatin Calcium (Crestor) 40 mg PO HS [facility] Stop: 04/12/17 21:01 Last Admin: 10/12/16 20:57 Dose: 40 mg - Imaging and Cardiology Echo: report reviewed - EKG Interpretation EKG results cardiology: other (12 hour tele AVG HR 72, SR, paced no significant pauses or arrhythmias) Consult Discharge Plan - Plan Referrals: [facility] [Primary Care Provider] -
--- NOTE | 2016-10-13 11:02 | Electrocardiograph Report ---
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
[2016-10-13] MEDS: Insulin DETEMIR 100 UNIT/ML X5UNITS SQ SCH (20:21)
[2016-10-14 04:43] LABS: Basophils % 0.5 %; Eosinophils # 0.3 K/mcL (0.0-0.6); Eosinophils % 3.4 %; Hematocrit 44.3 % (37.5-50.1); Hemoglobin 15.2 g/dL (12.9-16.9); Immature Granulocytes % 0.4 % (0-4); Lymphocytes # 2.3 K/mcL (0.6-4.6); Lymphocytes % 28.9 %; Mean Corpuscular HGB Conc 34.3 g/dL (31.6-35.5); Mean Corpuscular Hemoglobin 30.4 pg (28.0-33.3); Mean Corpuscular Volume 88.6 fL (83.0-100.0); Mean Platelet Volume 9.5 fL (9.4-12.4); Monocytes # 0.9 K/mcL (0.0-1.3); Monocytes % 11.3 %; Neutrophils # 4.5 K/mcL (1.6-8.9); Platelet Count 176 K/mcL (140-400); Segmented Neutrophils % 55.5 %
[2016-10-14 04:55] LABS: BUN/Creatinine Ratio 16 (6-26); Blood Urea Nitrogen 20 mg/dL (8-26); Calcium 9.1 mg/dL (8.6-10.8); Carbon Dioxide 26 mEq/L (19-29); Chloride 105 mEq/L (98-109); Glucose 114 mg/dL (70-99); Magnesium 1.7 mg/dL (1.6-2.6); Osmolality,Calculated 291 (280-300); Phosphorous 3.2 mg/dL (2.3-4.7); Potassium 3.6 mEq/L (3.5-4.5); Sodium 139 mEq/L (136-145); eGFR For African Americans > 60 (> 60); eGFR For Non-African Americans 57 (> 60)
[2016-10-14] MEDS: *HR* Heparin 5,000 UNIT/ML VIAL SQ SCH (06:13)
[2016-10-14] MEDS: Lisinopril 20 MG TABLET PO SCH (07:45)
[2016-10-14] MEDS: Insulin LISPRO 300 UNITS/3 ML VIAL SQ SCH ×2 (07:45→11:43)
--- NOTE | 2016-10-14 09:57 | Discharge Summary ---
Date of Encounter: 10/14/16 Time of Encounter: 09:52 - Discharge Diagnosis (1) Heart block Priority: Secondary Status: Resolved (2) CVA (cerebral vascular accident) Priority: Primary Status: Acute Qualifiers: CVA mechanism: unspecified Qualified Code(s): I63.9 - Cerebral infarction, unspecified (3) CAD (coronary artery disease) Priority: Secondary Status: Chronic Qualifiers: Coronary Disease-Associated Artery/Lesion type: bypass graft [place] vs. transplanted heart: [place] heart Associated angina: without angina Qualified Code(s): I25.810 - Atherosclerosis of coronary artery bypass graft(s) without angina pectoris (4) HTN (hypertension) Priority: Secondary Status: Chronic Qualifiers: Hypertension type: essential hypertension Qualified Code(s): I10 - Essential (primary) hypertension (5) Diabetes Priority: Secondary Status: Chronic Qualifiers: Diabetes mellitus type: type 2 Diabetes mellitus complication status: with hyperglycemia Diabetes mellitus longterm insulin use: with intermodal customer service use Qualified Code(s): E11.65 - Type 2 diabetes mellitus with hyperglycemia; Z79.4 - joint terminal attack controller (current) use of insulin (6) DVT prophylaxis Priority: Secondary Status: Acute - Discharge Medications Prescriptions: Clopidogrel [Plavix] 75 mg PO DAILY #30 tablet Metoprolol [Lopressor] 12.5 mg PO BID #60 tablet Home Medications: Insulin ASPART [Novolog Flexpen] 15 - 20 unit SQ TIDWM MDD SLIDING SCALE [History] Insulin Glargine,Hum.rec.anlog [Lantus Solostar] 20 unit SQ HS 10/11/16 [History ] Lisinopril [Zestril] 20 mg PO DAILY 10/11/16 [History] Naproxen [Naprosyn] 500 mg PO BID 10/11/16 [History] [place]-3/Dha/Epa/Fish Oil [Fish Oil 1,000 mg Softgel] 1,000 mg PO BID 10/11/16 [ History] Oxybutynin [Ditropan] 5 mg PO BID 10/11/16 [History] Rosuvastatin [Crestor] 40 mg PO HS 10/11/16 [History] Vitamin B Complex 1 cap PO DAILY 10/11/16 [History] metFORMIN [Glucophage] 1,000 mg PO BIDWM 10/11/16 [History] Clopidogrel [Plavix] 75 mg PO DAILY #30 tablet 10/14/16 [Rx] Metoprolol [Lopressor] 12.5 mg PO BID #60 tablet 10/14/16 [Rx] Allergies/Adverse Reactions: Allergies No Known Allergies Allergy (Verified 10/11/16 12:20) Procedures/tests Complete & Pending: Procedures Performed prior 72 hours Category Date Time Status CL Insert Permanent Pacemaker [CL] 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 10/12/16 18:23 Ordered ECG 12 lead ECG [ECG] Routine Y 10/12/16 15:19 Completed EV carotid duplex imaging BI Stat Y 10/13/16 08:21 Ordered Date of admission: 10/11/16 17:04 Primary care physician: [facility] Consults: 10/12/16 10:03 Consult to Physical Therapy [CONS] Routine Comment: Evaluate, develop and implement POC Reason for Consult: Acute CVA diagnosis, eval 10/12/16 10:04 Consult to Occupational Therapy [CONS] Routine Comment: Evaluate, develop and implement POC Reason for Consult: Acute CVA Diagnosis, Eval 10/12/16 11:39 Consult to Neurology [CONS] Routine Consulting Provider: [facility] Reason for Consult: Acute CVA Time Notified: 11:39 Call Completed: Yes 10/12/16 15:15 Consult to Cardiology [CONS] Routine Comment: Consulting Provider: [facility] Reason for Consult: Second Degree Block Type II Time Notified: 15:15 Call Completed: Yes Discharging clinician: Kaylan Almaguer Anticipated date of discharge: 10/14/16 - Patient Status Disposition: Home, Self-Care Condition: Good Functional capacity at discharge: independent ambulation Overall status at discharge: patient is back to baseline - Discharge Instructions Instructions: Metoprolol (By mouth), Clopidogrel (By mouth), Pacemaker (GEN) Follow Up With: wound,check [Other] - 10/20/16 1:30 pm (1 WEEK WOUND CHECK) CHECK,WOUND [Other] - 11/10/16 10:00 am (4-6 WEEK CHECK UP) [facility],NEURO [Other] - 11/02/16 8:30 am Fermin Cross MD [Partnered Physician] - 01/10/17 10:30 am [facility],PCP [Primary Care Provider] - 10/18/16 10:45 am ([place]) Additional Instructions: Please follow up with your primary care physician within one week after your discharge from the hospital. Please follow up with your manager purchasing as per the listed appointments above. Please follow up with your neurologist within one week after your discharge from the hospital. Your home dose of Aspirin has been discontinued. Plavix 75mg once a day has been added to your home medications. Metoprolol 12.5mg twice a day has been added to your home medications. Please closely monitor your blood pressure. If you are consistently having elevated blood pressure (SBP>150), please inform your primary care physician. Please seek medical help immediately if you have chest pain or are noted to have irregular HR. Please resume all your home medications as prescribed by your primary care physician. ACTIVITY: Moderate activity for the next 7 days. No lifting more than 5 pounds ( gallon of milk) for 4-6 weeks. Avoid lifting your arm on the same side as the device for 4 weeks. BATHING /SHOWERING: Do not remove the large bandage over the site for 2 days. Do not allow the device to get wet for 7-10 days. You may bathe/shower, but do not use soap and water on the site. When bathing, keep the site dry by covering with Saran wrap or a towel. WOUND CARE: The white steri-strips will start to peel away and come off after 14 days, or your doctor will remove them after [address] anything into or on top of the incision. Do not use cotton swabs. Do not use any antibiotic ointment or Vitamin E on the site. REMINDERS: You may use electrical devices, such as, microwaves, hair dryers, electric razors, electric blankets, etc. as long as they are in good condition and kept 6 -8 inches away from the device. It is recommended to use cell phones on the opposite side of your device. Notify security personnel at the airport that you have a device before you go through airport security screening. When at places with security monitors, such as a grocery store, do not linger near these monitors. It is fine to walk past them in a normal manner. Refer to your owners manual for more specific directions. CARRY YOUR PACEMAKER/ICD CARD WITH YOU AT ALL TIMES Return to work as instructed per physician Resume driving as instructed per physician Keep all scheduled follow up appointments Resume medications as instructed Contact [facility] ( ) if: You develop excessive bleeding from insertion or wound site not controlled by applying pressure You develop a fever greater than 101 degrees Fahrenheit Your incision becomes reddened at or around the site Your incision develops yellowish or greenish drainage or development of white pimple-like bumps You experience excessive pain You develop swelling in your ankles You experience muscle switching You develop excessive hiccupping If you experience chest pain, shortness of breath, dizziness, or extreme tiredness, stop the activity and rest. Please notify [facility] office if you experience any of these symptoms and they are not relieved by rest please call 911! - Diet and Activity Activity: resume usual activities as tolerated Diet: diabetic diet, low salt diet Hospital course: Mr. Finney is a 66 year old male with PMH of CAD, CVA, DM, HTN who was transferred from the [facility] for evaluation of a new CVA. Patient remained asymptomatic however given his MRI report, he was transferred to [facility] for admission. He was seen by neurologist and discontinuation of aspirin and addition of plavix was recommended. Pt's hospital course was also complicated by Mobitz I 2nd AV block for which cardiology was consulted. Pt had a permanent pacemaker placed and has been doing well since PM placement. He is currently in NSR with no distress. BB was also added to his regimen. At this time patient is hemodynamically stable and will be discharged to home with follow up with PCP, Cardiology, and neurology. Patient and demonstrate understanding of his diagnosis and agree with the discharge care and plan. - Time Spent with Patient Total time spent providing and/or coordinating discharge services: Less than 30 minutes - Constitutional Vitals: Temp Pulse Resp BP Pulse Ox 97.9 F 80 20 122/73 96 10/14/16 07:47 10/14/16 07:47 10/14/16 07:47 10/14/16 09:39 10/14/16 07:32 General appearance: Present: cooperative, A&O X 3, no acute distress, obese, answers questions appropriately - Head Head exam: Present: atraumatic, normocephalic - Eye Eye exam: Present: normal appearance, conjuntiva pink, sclera anicteric - Respiratory Respiratory exam: Present: CTAB. Absent: accessory muscle use, rales, rhonchi, wheezes - Cardiovascular Cardiovascular exam: Present: RRR, +S1, +S2. Absent: diastolic murmur, gallop, rubs, systolic murmur Additional comments: PM in place - GI/Abdominal GI/Abdominal exam: Present: normal bowel sounds, soft, no peritoneal signs. Absent: distended, tenderness - Extremities Exam Extremities exam: Present: warm, radial pulses palpable and symetrical. Absent : calf tenderness, cyanotic, pedal edema - Neurological Exam Neurological exam: Present: alert, oriented X3 - Psychiatric Psychiatric exam: Present: normal affect, normal mood
[2016-10-14 13:17] VITALS: BP 131/90
--- NOTE | 2016-10-14 19:53 | Carotid Imaging Report ---
Carotid Duplex Patient Name:Marky Finney Order Number:[id number] Procedure Date:10/13/2016 Date:8Age:66 yrs Gender:Male Rt.BP:149 / 96 mmHgHeart Rate: Location:[facility] Room #: 2N01 Sales Lead Generator:Kendell Randi Referring MD:Kaylan Almaguer MD Reading MD:Jaime Wood MD Primary Indications:CVA Impressions: Findings: Bilateral carotid system is essentially normal. Findings Carotid Duplex: Right: The right proximal common carotid artery has a PSV of 63 cm/s and a EDV of 11 cm/s. The right mid common carotid artery has a PSV of 86 cm/s and a EDV of 14 cm/s. The right distal common carotid artery has a PSV of 70 cm/s and a EDV of 11 cm/s. The right bifurcation has a PSV of 87 cm/s and a EDV of 15 cm/s. The right proximal internal carotid artery has a PSV of 102 cm/s and a EDV of 24 cm/s. The right mid internal carotid artery has a PSV of 77 cm/s and a EDV of 26 cm/s. The right distal internal carotid artery has a PSV of 32 cm/s and a EDV of 11 cm/s. The right eca has a PSV of 153 cm/s and a EDV of 2 cm/s. The right vertebral artery has a PSV of 18 cm/s and a EDV of 5 cm/s. Left: The left proximal common carotid artery has a PSV of 57 cm/s and a EDV of 9 cm/s. The left mid common carotid artery has a PSV of 68 cm/s and a EDV of 13 cm/s. The left distal common carotid artery has a PSV of 59 cm/s and a EDV of 12 cm/s. There is nonstenotic plaque in the left bifurcation with a PSV of 113 cm/s and a EDV of 19 cm/s. There is smooth plaque. The left proximal internal carotid artery has a PSV of 111 cm/s and a EDV of 27 cm/s. The left mid internal carotid artery has a PSV of 79 cm/s and a EDV of 17 cm/s. The left distal internal carotid artery has a PSV of 85 cm/s and a EDV of 21 cm/s. The left eca has a PSV of 120 cm/s and a EDV of 8 cm/s. The left vertebral artery has a PSV of 33 cm/s and a EDV of 6 cm/s. Carotid Results Right PSV EDV Assessment Proximal CCA 63 11 Mid CCA 86 14 Distal CCA 70 11 Bifurcation 87 15 Proximal ICA 102 24 Mid ICA 77 26 Distal ICA 32 11 ECA 153 2 Vertebral Artery 18 5 Antegrade Flow Left PSV EDV Assessment Proximal CCA 57 9 Mid CCA 68 13 Distal CCA 59 12 Bifurcation 113 19 Non Stenotic Plaque Proximal ICA 111 27 Mid ICA 79 17 Distal ICA 85 21 ECA 120 8 Vertebral Artery 33 6 Antegrade Flow Ratio's Right ICA/CCA Ratio: 1.19 ICA/CCA Values: 102/86 Left ICA/CCA Ratio: 1.63 ICA/CCA Values: 111/68 Updated by Jaime Wood MD on 10/14/2016 7:49:31 PM electronically signed on 10/14/2016 7:49:44 PM with status of Final
== END 2016-10-14 14:08 | disposition home or self-care (01) | DRG 242 ==
LOC: EMEROO 10:58 → 2ANU 10:58 → 2NNU 10-12 16:50
PROVIDERS: ADMIT Internal Medicine; ATTEND Internal Medicine